=== PATIENT | male | born 1965 | race Caucasian/White ===

== ENCOUNTER 2025-01-09 05:10 | Observation (INO) | payer BC, SELFPAY ==
[2025-01-09] VITALS (14 sets, daily range): BP systolic 124–162; BP diastolic 73–96; BMI 37.8
[2025-01-09 00:29] LABS: Hematocrit 39.3 % (39.0-52.0); Hemoglobin 13.6 g/dL (13.0-18.0); Mean Corp Hgb Conc. 34.6 g/dL (33.0-37.0); Mean Corpuscular Volume 88.5 fL (80.0-94.0); Nucleated Red Blood Cells % 0 % (-); Platelet Count 278 10^3/uL (130-400); Red Cell Dist. Width 13.8 % (11.5-14.5)
[2025-01-09 00:47] LABS: ALT (SGPT) 40 U/L (0-50); AST (SGOT) 33 U/L (17-59); Albumin 4.5 g/dl (3.5-5.0); Alkaline Phosphatase 39 U/L (38-126); Blood Urea Nitrogen 33 mg/dl (9-20); Calcium 9.5 mg/dl (8.4-10.2); Carbon Dioxide 26 mmol/L (22-30); Chloride 107 mmol/L (98-107); Glucose 108 mg/dl (70-99); Potassium 4.7 mmol/L (3.5-5.1); Sodium 139 mmol/L (135-145); Total Protein 7.2 g/dl (6.3-8.2); eGFR > 60.00
[2025-01-09 00:53] LABS: Troponin I 0.016 ng/ml
--- NOTE | 2025-01-09 01:54 | ED.GENMED ---
History of Present Illness
<August Villalba MD, Resident - Last Filed: 01/09/25 05:17>
General
Chief Complaint: Chest Pain
Source: patient
Exam Limitations: none
Time Seen by Provider: 01/09/25 00:58
History of Present Illness
History of Present Illness:
Patient is a 59-year-old male who presents to the emergency department after having pain with burning and tingling sensation over the evening. He has a history of high cholesterol and is intolerant to statin medication. He was in his normal state
of health vision before bed in his 'zero gravity bed' as he always does watching television before falling asleep. Unfortunately, suddenly he started to develop with a burning sensation that was not similar to previous episodes of GERD that he has
had in the past. He stated that he 'felt weird' and struggled to describe the weird feeling aside from the left upper, tingling, and slight numbness. He had his son help measure his heart rate which was 88 at home. He did not have any shortness
of breath, dizziness, palpitations, nausea, or vomiting during this episode. He has no history of additions and his family history is noncontributory. Father recently from [facility].
Past History
<August Villalba MD, Resident - Last Filed: 01/09/25 05:17>
Past History
ED Past Medical History: None
ED Past Surgical History: None
Social History
Tobacco: Non-smoker
Alcohol: Occasional
Drug: None
Personal:
Living: with family ( lives with son)
Employment: Employed
Family History
Family History: Other ( father from [facility])
Review of Systems
<August Villalba MD, Resident - Last Filed: 01/09/25 05:17>
Review of Systems
Constitutional: Reports no symptoms
EENT: Reports no symptoms
Respiratory: Reports no symptoms
Cardiac: Reports other ( 'feels weird' left upper shoulder)
ABD/GI: Reports no symptoms
: Reports no symptoms
Musculoskeletal: Reports muscle pain ( left upper shoulder anteriorly)
Skin: Reports no symptoms
Neurological: Reports no symptoms
Endocrine: Reports no symptoms
Hematologic/Lymphatic: Reports no symptoms
Psychiatric: Reports no symptoms
Phy Exam
<August Villalba MD, Resident - Last Filed: 01/09/25 05:17>
General Physical Exam
General Presentation: well appearing and no apparent distress
General age: appears stated age
General Skin: warm and dry
General Habitus: normal and obese
General Mental: alert
General Hydration: appears well hydrated
Cardiovascular Exam
Cardiovascular Exam: regular rate/rhythm, no edema, no gallop, no JVD, no murmur, normal peripheral pulses and no carotid bruit
Pulmonary Exam
Pulmonary Exam: lungs clear, no respiratory distress, no rales, chest non tender, no crackles, no rhonchi, no stridor, no wheezing and no cough
Scores
<August Villalba MD, Resident - Last Filed: 01/09/25 05:17>
Heart Score for Chest Pain Patients
Heart Score for Chest Pain Patients: 4
Heart Score Risk: 20.3% MACE over next 6 weeks
<Magali Watson, DO - Last Filed: 01/09/25 04:17>
Heart Score for Chest Pain Patients
STEMI patient?: No
History: Slightly or Non-Suspicious
ECG: Normal
Age: >45 - <65 years
Risk Factors: 1 or 2 Risk Factors
Troponin: >/= 3 x Normal Limit
Heart Score for Chest Pain Patients: 4
Heart Score Risk: 20.3% MACE over next 6 weeks
Course
<August Villalba MD, Resident - Last Filed: 01/09/25 05:17>
Orders/Labs/Results
Orders:
Orders
01/09/25 00:01
Electrocardiogram (*1) Urgent
Reason for Study: Chest Pain
EKG- Treatment ONCE
01/09/25 00:19
Complete Blood Count/With Diff Urgent
Comprehensive Metabolic Panel Urgent
Troponin I Urgent
01/09/25 01:51
EKG- Treatment ONCE
01/09/25 02:12
Aspirin Chewable [Low Strength Aspirin] 324 mg PO NOW STA
01/09/25 03:00
Electrocardiogram (*1) Urgent
Reason for Study: Chest Pain
01/09/25 03:09
Troponin I Urgent
01/09/25 04:08
Heparin 4,000 units IV NOW STA
Nitroglycerin Ointment [Nitro-Bid] 1 inch TOPICAL NOW STA
Nursing to Place Non Medication Order As Directed
Physician Order: PTT 6 hours after initial start of Heparin infusion
Above order entered?: Yes
01/09/25 04:15
Heparin [id number] Units/250 ml 25,000 units in 250 ml IV PER PROTOCOL
Weight to be used for heparin protocol in kilograms (kg):: 120.3
Protocol:: Cardiac Tx/Acute Coronary
PTT Goal Range to be used:: PTT 73 to 111 seconds
Order type:: Initial
INITIAL Infusion Dose (UNITS/KG/hr) & then follow protocol:: 12 units/kg/hr
Infusion Dose in UNITS/hr & then follow protocol (UNITS/hr):: 1,000
INFUSION RATE in mL/hr & then follow protocol (mL/hr):: 10
PTT less than or equal to 64 seconds:: Increase rate by 200 units/hr (+ 2 mL/hr)
PTT 64.1 to 72.9 seconds:: Increase rate by 100 units/hr (+ 1 mL/hr)
PTT 73 to 111 seconds:: Target Range. No change in rate.
PTT 111.1 to 130.9 seconds:: Decrease rate by 100 units/hr (- 1 mL/hr)
PTT 131 to 199.9 seconds:: HOLD for 1 hr. Then decrease rate by 200 units/hr (- 2 mL/hr)
PTT greater than or equal to 200 seconds:: HOLD for 2 hrs & Notify Provider. Then decrease by 200 units/hr (-
2 mL/hr)
Lab follow-up:: Each change, PTT q6h until 2 consecutive are therapeutic. Then PTT
daily.
01/09/25 04:26
PTT Urgent
Comment: Obtain baseline before beginning heparin infusion if not already collected
01/09/25 04:30
Admit/Transfer Patient As Directed
Co-Sign Provider:
Level of Care: Observation services
Assign to:: Telemetry
Physician / Group: Francy
Diagnosis: NSTEMI
Reason for Telemetry: Chest Pain syndromes
Date to Stop Telemetry: 01/11/25
Time to Stop Telemetry: 11:00
PRN Pain Medication Management As Directed
May give lesser potent ordered pain med per pt: Yes
preference::
Protocol:: Medication orders for pain may be administered in a
manner that supports deferring to patient preference
when the pt is:
- Requesting an ordered lesser potent pain medication.
Least to most potent pain medications are defined
as: acetaminophen < NSAID < tramadol < opioids
(morphine, oxycodone, hydromorphone).
- Requesting a lesser dose of the same medication IF
ORDERED.
- Requesting a less intrusive route of administration
if both routes are prescribed by the provider (PO <
IV).
01/09/25 04:31
Code Status As Directed
Resuscitation Status: Full Code
01/11/25 11:00
DC Protocol for Telemetry ONCE
Abnormal Lab Results
01/09/25 01/09/25
00:19 03:09
RBC 4.44 L 10^6/uL
(4.70-6.10)
Absolute Monos (auto) 1.0 H 10^3/uL
(0.1-0.6)
Monocytes % 10.3 H %
(1.7-9.3)
Eosinophils % 7.3 H %
(0-6)
BUN 33 H mg/dl
(9-20)
Glucose 108 H mg/dl
(70-99)
Troponin I 0.161 H* D ng/ml
01/09/25 00:19
01/09/25 00:19
Vital Signs
Initial and Last Documented VS:
Initial Vital Signs
Temp Pulse Resp BP Pulse Ox
97.6 F 84 16 162/96 100
01/09/25 00:10 01/09/25 00:10 01/09/25 00:10 01/09/25 00:10 01/09/25 00:10
Last Documented Vital Signs
Temp Pulse Resp BP Pulse Ox
97.6 F 84 15 154/92 95
01/09/25 00:10 01/09/25 04:17 01/09/25 03:00 01/09/25 04:17 01/09/25 03:00
<Magali Watson, DO - Last Filed: 01/09/25 04:17>
Orders/Labs/Results
Orders:
Orders
01/09/25 00:01
Electrocardiogram (*1) Urgent
Reason for Study: Chest Pain
EKG- Treatment ONCE
01/09/25 00:19
Complete Blood Count/With Diff Urgent
Comprehensive Metabolic Panel Urgent
Troponin I Urgent
01/09/25 01:51
EKG- Treatment ONCE
01/09/25 02:12
Aspirin Chewable [Low Strength Aspirin] 324 mg PO NOW STA
01/09/25 03:00
Electrocardiogram (*1) Urgent
Reason for Study: Chest Pain
01/09/25 03:09
Troponin I Urgent
01/09/25 04:08
Heparin 4,000 units IV NOW STA
Nitroglycerin Ointment [Nitro-Bid] 1 inch TOPICAL NOW STA
Nursing to Place Non Medication Order As Directed
Physician Order: PTT 6 hours after initial start of Heparin infusion
Above order entered?: Yes
01/09/25 04:15
Heparin [id number] Units/250 ml 25,000 units in 250 ml IV PER PROTOCOL
Weight to be used for heparin protocol in kilograms (kg):: 120.3
Protocol:: Cardiac Tx/Acute Coronary
PTT Goal Range to be used:: PTT 73 to 111 seconds
Order type:: Initial
INITIAL Infusion Dose (UNITS/KG/hr) & then follow protocol:: 12 units/kg/hr
Infusion Dose in UNITS/hr & then follow protocol (UNITS/hr):: 1,000
INFUSION RATE in mL/hr & then follow protocol (mL/hr):: 10
PTT less than or equal to 64 seconds:: Increase rate by 200 units/hr (+ 2 mL/hr)
PTT 64.1 to 72.9 seconds:: Increase rate by 100 units/hr (+ 1 mL/hr)
PTT 73 to 111 seconds:: Target Range. No change in rate.
PTT 111.1 to 130.9 seconds:: Decrease rate by 100 units/hr (- 1 mL/hr)
PTT 131 to 199.9 seconds:: HOLD for 1 hr. Then decrease rate by 200 units/hr (- 2 mL/hr)
PTT greater than or equal to 200 seconds:: HOLD for 2 hrs & Notify Provider. Then decrease by 200 units/hr (-
2 mL/hr)
Lab follow-up:: Each change, PTT q6h until 2 consecutive are therapeutic. Then PTT
daily.
01/09/25 04:26
PTT Urgent
Comment: Obtain baseline before beginning heparin infusion if not already collected
01/09/25 04:30
Admit/Transfer Patient As Directed
Co-Sign Provider:
Level of Care: Observation services
Assign to:: Telemetry
Physician / Group: Francy
Diagnosis: NSTEMI
Reason for Telemetry: Chest Pain syndromes
Date to Stop Telemetry: 01/11/25
Time to Stop Telemetry: 11:00
PRN Pain Medication Management As Directed
May give lesser potent ordered pain med per pt: Yes
preference::
Protocol:: Medication orders for pain may be administered in a
manner that supports deferring to patient preference
when the pt is:
- Requesting an ordered lesser potent pain medication.
Least to most potent pain medications are defined
as: acetaminophen < NSAID < tramadol < opioids
(morphine, oxycodone, hydromorphone).
- Requesting a lesser dose of the same medication IF
ORDERED.
- Requesting a less intrusive route of administration
if both routes are prescribed by the provider (PO <
IV).
01/09/25 04:31
Code Status As Directed
Resuscitation Status: Full Code
01/11/25 11:00
DC Protocol for Telemetry ONCE
Abnormal Lab Results
01/09/25 01/09/25
00:19 03:09
RBC 4.44 L 10^6/uL
(4.70-6.10)
Absolute Monos (auto) 1.0 H 10^3/uL
(0.1-0.6)
Monocytes % 10.3 H %
(1.7-9.3)
Eosinophils % 7.3 H %
(0-6)
BUN 33 H mg/dl
(9-20)
Glucose 108 H mg/dl
(70-99)
Troponin I 0.161 H* D ng/ml
08/30/25 00:19
01/09/25 00:19
Vital Signs
Initial and Last Documented VS:
Initial Vital Signs
Temp Pulse Resp BP Pulse Ox
97.6 F 84 16 162/96 100
01/09/25 00:10 01/09/25 00:10 01/09/25 00:10 01/09/25 00:10 01/09/25 00:10
Last Documented Vital Signs
Temp Pulse Resp BP Pulse Ox
97.6 F 84 15 154/92 95
01/09/25 00:10 01/09/25 04:17 01/09/25 03:00 01/09/25 04:17 01/09/25 03:00
<August Villalba MD, Resident - Last Filed: 01/09/25 05:17>
*Pulse Oximetry
SaO2: 94
Oxygen Mode of Delivery: Room air
Patient hypoxic: no
*Critical Care Note
Total Time (30-74mins, 75-104mins- exclusive of procedures): 60
<August Villalba MD, Resident - Last Filed: 01/09/25 05:17>
Update Note
Update Note:
Problem List:
Chest pain
Chest tingling
Fingertips cold on left hand
Plan:
EKG ordered
CBC and BMP ordered
troponin ordered
supportive care
Differential Diagnoses:
stable angina
Musculoskeletal pain/ costochondritis
GERD
anxiety
Radiology: not applicable
EKG: normal EKG
Labs:
CBC and BMP unremarkable
initial troponin is within normal limits
Updates:
Patient's left-sided chest pain with burning and tingling has resolved
CBC and BMP unremarkable
initial troponin is within normal limits�repeat troponin at 3 AM
324 mg aspirin given
repeat troponin found to be 0.161
acute coronary syndrome likely based on presentation and labs
patient to be admitted
serial troponins until downtrending
heparin subcu
Nitropaste given
ED Attending Note
<August Villalba MD, Resident - Last Filed: 01/09/25 05:17>
-
Portions of this chart may have been created with voice recognition software.� Occasional wrong word or��sound alike� substitutions may have occurred due to the inherent limitations of voice recognition software.
<Magali Watson DO - Last Filed: 01/09/25 04:17>
ED Attending Note
Patient seen and examined by attending physician: Yes
I performed a history and physical exam of patient and discussed management with resident, I reviewed resident's note and agree with documented findings and plan of care.: Yes
ED Attending Note:
This is a 59-year-old gentleman with history of obesity, seasonal allergies, hyperlipidemia, GERD. He presents with left upper chest pain that radiated to his left shoulder and left arm that began 30 minutes prior to arrival while lying in bed
watching TV. He admits that his left arm was extended above his head with his hand resting behind his head when left upper chest discomfort began described as a burning and cold sensation that radiated to his left shoulder and he also noted some
tingling and cold sensation of his left hand fingers. Despite repositioning his arm to his side, left upper chest discomfort persisted. No other associated symptoms, no palpitations, no shortness of breath or diaphoresis nor nausea. No history of
similar episodes in the past. Chest discomfort lasted approximately 30 minutes and was resolving upon arrival to the ED.
Currently comfortable but is noted to frequently press and palpate his left pectoralis region.
He takes no prescription medications. Takes several vitamins, an antihistamine, as well as low-dose aspirin daily. 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
No personal nor family history of CAD nor ASCVD.
He has been successfully losing weight over the past year or 2 by maintaining a low-carb diet.
59-year-old obese gentleman appears his stated age, awake and alert, pleasant, quite chatty and in no acute distress.
Heart is regular rate and rhythm. No murmur no rub. Questionable mildly reproducible left upper chest pain with palpation. There is no tenderness to the shoulder nor pain with shoulder range of motion.
Concern for ACS, GERD, musculoskeletal chest pain. No history of thromboembolism nor risk factors for such.
EKG is unremarkable showing normal sinus rhythm, normal axis, normal intervals, no acute ST-T wave abnormalities. No old EKG to compare.
Labs thus far unremarkable. Troponin 0.016.
For potential ACS will give 324 mg chewable aspirin.
Will plan to repeat troponin and EKG at 3 AM.
04:10
Patient remains chest pain-free and comfortable.
Repeat EKG shows questionable mild early repol high laterally, no reciprocal changes.
Repeat troponin is trending up 0.161. Quite suspicious for ACS. He remains pain-free and comfortable.
Will initiate IV heparin bolus and drip. Will add Nitropaste.
Will admit to hospitalist service and will contact cardiology as well.
Discharge Plan
Departure
Patient Disposition: Admit
Date of Disposition: 01/09/25
Time of Disposition: 04:15
Admit to: Telemetry
Admit to doctor: Christie
Presentation/result/management discussed w/ accepting MD/DO: Hospitalist
Condition: Fair
Discharge Problem:
Acute coronary syndrome
Interventions
Interventions:
*Risk Screen - Suicide Last Done: 01/09/25 00:10
*General Assessment Last Done: 01/09/25 00:10
*Neglect/Abuse Screening Last Done: 01/09/25 00:10
*ED- Fall Risk Assessment Last Done: 01/09/25 01:12
*ED COVID-19 Vaccine History Last Done: 01/09/25 01:12
ED- Cardiac Assessment Last Done: 01/09/25 02:00
[2025-01-09] MEDS: LOW STRENGTH ASPIRIN 324 MG PO (02:40)
[2025-01-09 03:59] LABS: Troponin I 0.161 ng/ml
[2025-01-09] MEDS: NITRO-BID 1 INCH TOPICAL (04:16)
[2025-01-09] MEDS: HEPARIN 4000 UNITS IV (04:22)
--- NOTE | 2025-01-09 04:26 | HPS.HSE ---
Family Physician
-
Family Physician: Andre Quinteros
Chief Complaint
-
Chest pain
History of Present Illness
This is a 59-year-old with a past past medical history of hyperlipidemia and he is statin intolerant presents to the emergency department with 30 minutes of left upper sided chest pain.
Patient reports resting in his bed when he suddenly developed the left upper chest pain that seems to be radiating to his left shoulder. He denied any association with shortness of breath, diaphoresis nausea or vomiting. He denied feeling dizzy or
lightheaded. He said the symptoms lasted for about 30 minutes and he with the possibilities and decided come to the emergency department for evaluation. He denies any prior such episodes.
Patient reports he has not been having any episodes of exertional chest pain. He denies dyspnea on exertion with walking up a flight of stairs with heavy objects. Patient denies any recent trauma. Denies any cough cold or flulike symptoms. The
pain that lasts 30 minutes was not associated with any positional changes. He is currently chest pain-free without any acute intervention.
Patient reports no recent episodes of chest pain and denies any recent stress test. He reports family history of aneurysm but otherwise no significant past family history.
In the past he had had hyperlipidemia for which he had a reaction to statin with myopathy.
In the emergency department a was afebrile, blood pressure was 140/80 with a pulse of 78 and was at 97% on room air. ECG shows a normal sinus rhythm without any acute ST or T wave changes. Initial troponin was 0.012, repeat troponin was 0.16. CBC
was unremarkable. Electrolytes BUN/creatinine were normal
Medical History
Past Medical History
Past Medical History: Reports Hypercholesterolemia
Past Surgical History: Reports None
Social History
Tobacco: Non-smoker
Alcohol: Occasional
Drug: None
Personal: Single
Living: With Family
Employment: Employed
Family History
Family History: Not pertinent
Allergies / Home Medications
Allergies reflects when Allergies were last updated in [facility].
Home Medications with original date entered in [facility]
Allergy/Medication List:
Allergies
Allergy/AdvReac Type Severity Reaction Status Date / Time
[id number] Reductase Allergy Unknown Verified 01/09/25 00:15
Inhibitor
Cetirizine 10 mg tablet, 10 mg p.o. daily as needed for allergies
Review of Systems
-
History Source: Patient
Constitutional: Reports No Symptoms
EENT: Reports No Symptoms
Respiratory: Reports No Symptoms
Cardiac: Reports Chest Pain
Abdomen/GI: Reports No Symptoms
: Reports No Symptoms
Musculoskeletal: Reports No Symptoms
Skin: Reports No Symptoms
Neurological: Reports No Symptoms
Endocrine: Reports No Symptoms
Hematologic/Lymphatic: Reports No Symptoms
Psych: Reports No Symptoms
Physical Exam
Vital Signs
Vital Signs
Temp Pulse Resp BP Pulse Ox
97.6 F 78 17 139/81 97
01/09/25 00:10 01/09/25 02:00 01/09/25 02:00 01/09/25 02:00 01/09/25 02:00
Physical Exam
General: Well Developed, Well Nourished, No Apparent Distress and Obese
HEENT: NormoCephalic, Moist mucous membranes, Atraumatic and PERRLA
Respiratory: Clear
Cardiac: S1/S2 and Regular Rhythm; No Murmur or Rub
GI: Soft, Non Tender, Non Distended and Normal Bowel Sounds; No Organomegaly
Rectal: Deferred by Provider
Musculoskeletal: No Clubbing, No Cyanosis and No Edema
Skin: No Rash
Neuro: Nonfocal/grossly intact
Laboratory Results
-
01/09/25 00:19
01/09/25 00:19
Laboratory Results
Total Bilirubin 0.4 mg/dl (0.2-1.3) 01/09/25 00:19
AST 33 U/L (17-59) 01/09/25 00:19
ALT 40 U/L (0-50) 01/09/25 00:19
Alkaline Phosphatase 39 U/L (38-126) 01/09/25 00:19
Troponin I 0.161 ng/ml H* D 01/09/25 03:09
Data Reviewed
-
Medical Tests (Nuc Med, Echo, EKG etc): Image Personally Visualized and interpreted
Lab Data: Labs Reviewed by me
Old Records: Reviewed
Impression/Plan
-
IMPRESSION:
59 y.o male with chest pain with radiation to left arm and found to have elevated troponin. ECG non-ischemic. Currently chest pain free.
PLAN:
NSTEMI
- admit to telemetry/obs
- cycle enzymes
- continue heparin gtt
- asa 81 daily
- npo for now
- echo
- cardiovascular panel and a1c in am, has statin myopathy history
- cardiology consult
DVT PPX - heparin gtt
Code status - Full Code
[2025-01-09 04:46] LABS: APTT 26.7 Sec (23.4-35.0)
[2025-01-09] MEDS: HEPARIN 25000 UNITS/250 ML IV ×2 (05:11→21:09)
--- NOTE | 2025-01-09 08:26 | CON.CAR ---
Consultation
Consultation Request
Date/Time Consultation Requested: January 09, 2025
Date/Time Consultation Performed: January 09, 2025
Requesting Provider: Hospitalist service
Performing Provider: Dr. Enoch Reina
Reason for Consultation: Chest pain
Medical History
-
Chief Complaint: Chest pain
History of Present Illness:
Patient is a 59-year-old man with medical history of dyslipidemia but intolerant of statin therapy who presented to the emergency department after sudden onset of left upper chest discomfort which radiated to his left shoulder. He reports that he
was in bed watching television and then suddenly he developed his left chest discomfort that he describes as a burning sensation. He notes that this is dissimilar to his gastroesophageal reflux disease discomfort. The pain then started radiating
into his left shoulder and left upper arm. This made him very nervous so he had his son drive him to the emergency department. He describes he has never had this type of pain before.
On presentation to the emergency department he notes that his chest discomfort by that point was mostly resolved and then completely resolved shortly thereafter I believe without specific intervention with her the emergency room department record
notes 1 inch of topical nitro ointment was administered along with IV heparin infusion but I believe this was done after his chest discomfort already resolved and once his second troponin showed a rise. Overall chest pain lasted approximately 30
minutes. Blood pressure was 162/96, heart rate is 84 bpm pulse ox is noted to be 100% and he is afebrile.
- Data:
Initial EKG is normal sinus rhythm at 94 bpm. No previous for comparison
Second EKG is normal sinus rhythm at 72 bpm, normal ECG no significant change from prior
Initial troponin 0.016, second troponin 0.161
Further, patient describes that while he does not do routine aerobic activity he is generally physically active during the day. He tells me that just 2 days ago he carried to 5 gallon containers of water up 15 flights of stairs without stopping and
with no chest pain or shortness of breath.
He has had no dizziness near syncope or syncope. No palpitations.
Past medical history:
Dyslipidemia but intolerant of statin
Gastroesophageal reflux disease
Social History
Alcohol: Occasional
Drug: None
Personal:
Living: With Family
Employment: Employed
Family History
Family History: Reviewed & Not Pertinent
Allergies / Home Medications
Allergy/AdvReac Type Severity Reaction Status Date / Time
Pdamteg-YOC-GmC Reductase Allergy Unknown Verified 01/09/25 00:15
Inhibitor
�Medication �Instructions �Recorded �Confirmed �Type
aspirin 81 mg tablet,delayed 81 mg PO DAILY 01/09/25 01/09/25 History
release
cetirizine 10 mg tablet (Zyrtec) 10 mg PO DAILY 01/09/25 01/09/25 History
cholecalciferol (vit D3) 1,000 1 tab PO DAILY 01/09/25 01/09/25 History
unit-vitamin K2 (MK4) 100 mcg
tablet
coenzyme Q10 100 mg capsule 100 mg PO DAILY 01/09/25 01/09/25 History
(CoQ-10)
multivitamin 2 tab PO DAILY 01/09/25 01/09/25 History
Review of Systems
-
History Source: Patient
All other systems: Negative unless noted
Constitutional: No Symptoms
EENT: No Symptoms
Respiratory: No Symptoms
Cardiac: Chest Pain
Abdomen/GI: No Symptoms
: No Symptoms
Musculoskeletal: No Symptoms
Skin: No Symptoms
Neurological: No Symptoms
Endocrine: No Symptoms
Hematologic/Lymphatic: No Symptoms
Physical Exam
Vital Signs
Temp Pulse Resp BP Pulse Ox
97.6 F 76 16 137/84 95
01/09/25 00:10 01/09/25 07:45 01/09/25 07:45 01/09/25 07:00 01/09/25 07:45
Lab Results
01/09/25 00:19
01/09/25 00:19
Troponin I 0.161 ng/ml H* D 01/09/25 03:09
Physical Exam
General: Well Developed, Well Nourished, No Apparent Distress and Comfortable
HEENT: Normocephalic and Moist Mucous Membranes
Respiratory: Clear and Non Labored Respirations
Cardiac: S1/S2 (No S3 and no S4), Regular Rhythm and Murmur (There is a grade 1/6 apical holosystolic murmur, no rubs, PMI is normally placed)
Breast: Deferred by me
GI: Soft, Non Tender, Non Distended and Normal Bowel Sounds
Rectal: Deferred by Provider
Musculoskeletal: No Clubbing, No Cyanosis and No Edema
Skin: Warm and Dry
Neuro: Awake, Alert, Oriented and AO x 3
Psych: Calm
Impression / Plan
-
Impression:
Chest discomfort possible unstable angina/acute coronary syndrome with rising troponin but normal ECG.
Dyslipidemia by history and also intolerant to statin due to myalgias
Blood pressure elevated on presentation but has been trending towards normal
Recommendations:
With the increase in troponin as well as the chest discomfort this could represent unstable coronary syndrome even in the face of normal ECGs.
- Maintain heparin infusion
- Trend troponins and ECG
- Will start low-dose beta-dean, Toprol-XL 25 mg daily for potential antianginal effect and also to help with his blood pressure
If no further chest pain and no further rise in troponin
- Suggest further outpatient ischemic evaluation while maintaining beta-dean and aspirin
If recurrent chest discomfort or rising troponin
- We will consider further inpatient ischemic evaluation options.
Will check fasting lipid profile in the morning
There is a history of statin intolerance but we could consider pks9 inhibitor
Hypertension, likely essential hypertension
Blood pressure elevated on presentation and has trended towards normal but not at goal of less than 120 over less than 80
- Will initiate Toprol-XL for both possible unstable coronary syndrome as well as blood pressure control but blood pressure will need to be further assessed
Discussed all of this with the patient. Answered all of his questions. He agrees with our evaluation and management plan.
Total time spent today was 75 minutes in preparing to see the patient, seeing the patient and coordination of care. This included review of recent laboratory evaluations, cardiac testing, hospital records, as well as personally interviewing and
examining the patient, which included discussion of their tests, review/ordering medications, and communicating with other healthcare professionals and also treatment planning as well as counseling.
Data Reviewed
-
EKG: Tracing Personally Visualized and interpreted and Discussed with Patient
Labs: Labs Reviewed by me and Discussed with Patient
[2025-01-09 09:45] LABS: Troponin I 0.150 ng/ml
[2025-01-09] MEDS: TOPROL XL 25 MG PO (09:57)
--- NOTE | 2025-01-09 10:16 | PTCARENOTE ---
Pt was received from ED at 0830. Pt ambulated tot he room with supervision. Heparin gtt infusing at 1400 units/hr. Pt is AAOx3, VSS. Denies chest pain. Resting in bed comfortably.
--- NOTE | 2025-01-09 11:10 | W.PN.HOSP.TC ---
Today's Communication/Plan
-
Assessment / Plan
Assessment / Plan
General: No Apparent Distress, Comfortable and Conversant
HEENT: NormoCephalic, Moist mucous membranes, Atraumatic
Respiratory: Clear and Non Labored Respirations
Cardiac: S1/S2 and Regular Rhythm; No Rub or Gallop
GI: Soft, Non Tender, Non Distended and Normal Bowel Sounds
Musculoskeletal: No Edema, no deformity
Skin: Warm and dry
: NO Diez
Neuro: Awake, Alert, Nonfocal/grossly intact
Psych: Calm and Intact Judgment/Insight
Mr. Pappas is a 59-year-old male with a medical history of dyslipidemia (statin intolerant) who presented with vague left upper chest discomfort that radiated to his left arm. He described it as an aching and burning sensation. His EKGs have been
unremarkable. His initial troponin was 0.012 but second troponin yemi to 0.16. He was given full-strength aspirin and started on IV heparin drip and admitted for further evaluation and management.
NSTEMI:
- Continue IV heparin drip
- Troponins appear to have plateaued
- Currently chest pain-free
- Cardiology following, started on low-dose beta-dean with metoprolol succinate 25 mg daily
- Will continue daily low-dose aspirin
- Check lipid profile, reports statin intolerance but could consider PKS9 inhibitor
- Check hemoglobin A1c
- Continue telemetry monitoring
Hypertension:
- Suspect longstanding, not on antihypertensive medications at home
- Started on metoprolol succinate 25 mg daily in setting of NSTEMI, will monitor blood pressure response
- Can add additional agents as needed
DVT prophylaxis: Heparin drip
CODE STATUS: Full code
Total time spent on today's encounter was 53 minutes
Anticipated Discharge: 24 - 48 hours
Subjective/Interval History
-
Date of Service: January 09, 2025
Patient was seen and examined at bedside this morning. Chest discomfort has resolved. Remains on IV heparin drip. Trending troponins.
Objective Data
-
Labs:
Laboratory Results
01/09/25 01/09/25 01/09/25
00:19 04:26 11:09
WBC 9.6
Hgb 13.6
Hct 39.3
Plt Count 278
APTT 26.7 Pending
Sodium 139
Potassium 4.7
Chloride 107
Carbon Dioxide 26
BUN 33 H
Creatinine 1.0
Glucose 108 H
Calcium 9.5
Total Bilirubin 0.4
AST 33
ALT 40
Alkaline Phosphatase 39
Vital Signs:
Vital Signs
Temp Pulse Resp BP Pulse Ox
97.9 F 84 16 147/84 100
01/09/25 08:32 01/09/25 08:32 01/09/25 08:32 01/09/25 08:32 01/09/25 08:32
Review of Systems
-
History Source: Patient
All other systems: Reviewed and negative
Physical Exam
-
General: No Apparent Distress
[2025-01-09 11:52] LABS: APTT 52.4 Sec (23.4-35.0)
[2025-01-09] MEDS: TYLENOL 650 MG PO ×3 (12:33→23:24)
[2025-01-09 18:45] LABS: APTT 66.0 Sec (23.4-35.0)
[2025-01-09] MEDS: BENADRYL 25 MG PO (23:01)
[2025-01-10 01:35] LABS: APTT 70.4 Sec (23.4-35.0)
[2025-01-10 03:02] VITALS: BP 140/83
[2025-01-10 06:00] VITALS: BMI 37.0
[2025-01-10 07:37] LABS: Hematocrit 41.0 % (39.0-52.0); Hemoglobin 14.2 g/dL (13.0-18.0); Mean Corp Hgb Conc. 34.6 g/dL (33.0-37.0); Mean Corpuscular Volume 89.1 fL (80.0-94.0); Platelet Count 271 10^3/uL (130-400); Red Cell Dist. Width 14.4 % (11.5-14.5)
[2025-01-10 07:43] LABS: APTT 88.6 Sec (23.4-35.0)
[2025-01-10 07:58] LABS: Troponin I 0.101 ng/ml
[2025-01-10 08:17] LABS: Glycohemoglobin (HgbA1c) 5.5 % (4.0-5.6)
[2025-01-10] MEDS: TOPROL XL 25 MG PO (08:27)
--- NOTE | 2025-01-10 08:30 | W.PN.CARDCBS ---
Today's Communication / Plan
-
Discharge on optimize medical regimen
Return to the ER if additional symptoms
Outpatient catheterization JUDE
Impression / Plan
-
Impression:
Chest discomfort possible unstable angina/acute coronary syndrome with rising troponin but normal ECG.
Dyslipidemia by history and also intolerant to statin due to myalgias
Blood pressure elevated on presentation but has been trending towards normal
Recommendations:
He presents with a story that is consistent with an acute coronary syndrome.
My preference would be to keep him in the hospital on heparin, optimize medical regimen, and proceed with catheterization on Saturday.
However, related to concerns about his son he feels very pressed to leave. We discussed this in detail. I told him that we discharged the risk of serious and potentially lethal outcomes would be low in the short-term.
After consideration, and in light of the fact that he has few other options with his son, he has elected to be discharged.
We will attempt to optimize his status.
Recommended cardiac medications at discharge:
Aspirin 81 mg a day
Pitavastatin 2 mg daily
Metoprolol ER 25 mg twice daily
Losartan 50 mg at bedtime
Clopidogrel 75 mg daily
Ultimately he would probably best be treated with Repatha.
Patient instructed to return to the emergency department if he has additional symptoms.
My office will contact him on Saturday to set up cardiac catheterization JUDE. I have asked him not to eat breakfast Saturday until we have spoken with him.
Progress Note - Blemish Remover
Subjective
Date of Service: January 10, 2025:
Is 59-year-old man admitted with chest discomfort, history of statin intolerance
PMH: Reflux, statin intolerant hypercholesterolemia, probable hypertension
Currently he feels well. However, he is under stress as he 23-year-old son lives with him who is on the spectrum and not doing well at home with his dad in the hospital. He feels pressed to leave.
Current medications: IV heparin, aspirin 81 mg a day, metoprolol ER 25 mg daily, lidocaine patch
140/88, pulse 79, respiratory rate 19 afebrile, weight is 113.5 kg, head neck exam unremarkable, lungs are clear, cardiac exam is notable for regular rate and rhythm without obvious murmurs or gallops, abdomen is benign extremities are without
clubbing cyanosis or edema
ECG no acute changes
Hemoglobin 14.2, troponin 0.101, peaked at 0.161, hemoglobin A1c is normal, BUN and creatinine are 17 and 0.8. Triglycerides are 265, total cholesterol is 232, LDL calculates at 100 with markedly elevated related VLDL and HDL 79. Glucose is 125
Objective
Labs:
01/10/25 07:17
Labs
Hgb 14.2 g/dL (13.0-18.0) 01/10/25 07:17
Hct 41.0 % (39.0-52.0) 01/10/25 07:17
Plt Count 271 10^3/uL (130-400) 01/10/25 07:17
APTT 88.6 Sec (23.4-35.0) H 01/10/25 07:17
Sodium 139 mmol/L (135-145) 01/09/25 00:19
Potassium 4.7 mmol/L (3.5-5.1) 01/09/25 00:19
BUN 33 mg/dl (9-20) H 01/09/25 00:19
Creatinine 1.0 mg/dL (0.7-1.3) 01/09/25 00:19
Glucose 108 mg/dl (70-99) H 01/09/25 00:19
Troponins
01/09/25 01/09/25 01/09/25
00:19 03:09 08:45
Troponin I 0.016 0.161 H* D 0.150 H*
01/09/25 01/10/25
10:58 07:17
Troponin I Cancelled 0.101 H*
Vital Signs and I&O:
Vital Signs
Temp Pulse Resp BP Pulse Ox
36.6 C 79 19 140/88 98
01/10/25 03:02 01/10/25 08:27 01/10/25 03:02 01/10/25 08:27 01/10/25 03:02
Vital Signs
Temp Pulse Resp BP Pulse Ox
36.6 C 79 19 140/88 98
01/10/25 03:02 01/10/25 08:27 01/10/25 03:02 01/10/25 08:27 01/10/25 03:02
Intake & Output
01/08/25 01/09/25 01/10/25 01/11/25
07:59 07:59 07:59 07:59
Intake Total 240 / 240
Balance 240 / 240
Physical Exam
Physical Exam
See above
[2025-01-10 08:31] LABS: Blood Urea Nitrogen 17 mg/dl (9-20); Calcium 9.4 mg/dl (8.4-10.2); Carbon Dioxide 28 mmol/L (22-30); Chloride 105 mmol/L (98-107); Estimated Creatinine Clearance > 125 ml/min; Glucose 125 mg/dl (70-99); HDL Cholesterol 79 mg/dl; LDL Cholesterol, Calculated 100 mg/dl; Potassium 4.3 mmol/L (3.5-5.1); Sodium 138 mmol/L (135-145); Very Low Density Lipoprotein 53 mg/dl (0-30); eGFR > 60.00
[2025-01-10 08:36] VITALS: BP 140/88
--- NOTE | 2025-01-10 11:12 | W.DCSUMMARY ---
Discharge Summary
Discharge Data
Date of Admission: 01/09/25
Date of Discharge: 01/10/25
Total time spent discharging patient (in min): 48
-
Pending Results: No
Hospital Course
Mr. Pappas is a 59-year-old male with a medical history of dyslipidemia (statin intolerant) who presented with vague left upper chest discomfort that radiated to his left arm. He described it as an aching and burning sensation. His EKGs have been
unremarkable. His initial troponin was 0.012 but second troponin yemi to 0.16. He was given full-strength aspirin and started on IV heparin drip and admitted for further evaluation and management.
His chest pain resolved although later returned intermittently. His troponins peaked at 0.16 and trended down on subsequent labs. His EKGs showed no acute changes. Initially plan was to keep him inpatient for coronary catheterization on Saturday.
However, patient has a child at home with special needs who would not be able to care for himself until Saturday. He spoke with cardiology team and agreed to follow-up as an outpatient for coronary angiography this week on Saturday or Saturday. He
has been loaded with Plavix prior to discharge. He has been advised about the risks associated with leaving the hospital at this point in his workup, although they are fairly low in the short-term. He has also been advised to go to the nearest
emergency department or call 911 if his presenting symptoms return or if he develops other concerning symptoms. He has been started on losartan and metoprolol for blood pressure and cardioprotection. He will be continued on DAPT with aspirin and
Plavix. He will be started on pitavastatin as well for cholesterol management however ultimately he should probably be treated with Repatha.
General: No Apparent Distress, Comfortable and Conversant
HEENT: NormoCephalic, Moist mucous membranes, Atraumatic
Respiratory: Clear and Non Labored Respirations
Cardiac: S1/S2 and Regular Rhythm; No Rub or Gallop
GI: Soft, Non Tender, Non Distended and Normal Bowel Sounds
Musculoskeletal: No Edema, no deformity
Skin: Warm and dry
: NO Diez
Neuro: Awake, Alert, Nonfocal/grossly intact
Psych: Calm and Intact Judgment/Insight
Discharge Plan
-
Patient Disposition: Home (Routine Discharge)
Discharge Diagnosis/Procedures: NSTEMI
Activity Restrictions/Additional Instructions:
Mr. Pappas is a 59-year-old male with a medical history of dyslipidemia (statin intolerant) who presented with vague left upper chest discomfort that radiated to his left arm. He described it as an aching and burning sensation. His EKGs have been
unremarkable. His initial troponin was 0.012 but second troponin yemi to 0.16. He was given full-strength aspirin and started on IV heparin drip and admitted for further evaluation and management.
His chest pain resolved although later returned intermittently. His troponins peaked at 0.16 and trended down on subsequent labs. His EKGs showed no acute changes. Initially plan was to keep him inpatient for coronary catheterization on Saturday.
However, patient has a child at home with special needs who would not be able to care for himself until Saturday. He spoke with cardiology team and agreed to follow-up as an outpatient for coronary angiography this week on Saturday or Saturday. He
has been loaded with Plavix prior to discharge. He has been advised about the risks associated with leaving the hospital at this point in his workup, although they are fairly low in the short-term. He has also been advised to go to the nearest
emergency department or call 911 if his presenting symptoms return or if he develops other concerning symptoms. He has been started on losartan and metoprolol for blood pressure and cardioprotection. He will be continued on DAPT with aspirin and
Plavix. He will be started on pitavastatin as well for cholesterol management however ultimately he should probably be treated with Repatha.
Referrals:
Nadya Reina MD [Active, Cardiology]
Andre Quinteros DO [Family Provider, [facility]]
Prescriptions:
New
losartan 50 mg Tablet
50 mg PO HS 30 Days Qty: 30 0RF
metoprolol succinate 25 mg Tablet Extended Release 24 Hr
25 mg PO BID 30 Days Qty: 60 0RF
clopidogrel [Plavix] 75 mg tablet
75 mg PO DAILY Qty: 30 0RF
pitavastatin calcium 2 mg tablet
2 mg PO QPM 30 Days Qty: 30 0RF
Continued
multivitamin Tablet
2 tab PO DAILY
cetirizine [Zyrtec] 10 mg Tablet
10 mg PO DAILY
aspirin 81 mg Tablet,Delayed Release (Dr/Ec)
81 mg PO DAILY
vitamin D3-vitamin K2 (MK4) 1,000-100 unit-mcg Tablet
1 tab PO DAILY
coenzyme Q10 [CoQ-10] 100 mg Capsule
100 mg PO DAILY
Discharge Orders:
Discharge Patient (As Directed); Ordered 01/10/25
Ordered By: Chris Sutherland
Discharge Date and Time
Print Language: DANISH
[2025-01-10] MEDS: PLAVIX 600 MG PO (11:27)
[2025-01-10 11:32] VITALS: BP 153/85
== END 2025-01-10 12:03 | disposition home or self-care (01) ==
LOC: 4 EAST ACU 05:10
PROVIDERS: ADMITTING PHYSICIAN Internal Medicine; ATTENDING PHYSICIAN Internal Medicine; CONSULT PHYSICIAN Internal Medicine Cardiovascular Disease; EMERGENCY PHYSICIAN Emergency Medicine; FAMILY PHYSICIAN Family Medicine
DX: I21.4 Non-ST elevation (NSTEMI) myocardial infarction (principal); I10 Essential (primary) hypertension; E78.00 Pure hypercholesterolemia, unspecified; K21.9 Gastro-esophageal reflux disease without esophagitis; Z79.02 Long term (current) use of antithrombotics/antiplatelets; Z79.82 Long term (current) use of aspirin; Z79.899 Other long term (current) drug therapy
CPT/HCPCS: 80048; 80053; 80061; 83036; 84484; 85025; 85027; 85730; 93005; 96365; 96366; 99291; G0378

== ENCOUNTER 2025-01-12 10:33 | Day surgery (SDC) | payer BC, SELFPAY ==
[2025-01-12] VITALS (32 sets, daily range): BP systolic 75–131; BP diastolic 35–88; BMI 37.6
[2025-01-12] MEDS: NSS 336 ML IV (11:29)
[2025-01-12 13:45] LABS: ACT-LR - POC 274 Seconds (116-155)
[2025-01-12 13:54] LABS: ACT-LR - POC 290 Seconds (116-155)
[2025-01-12 14:06] LABS: ACT-LR - POC 361 Seconds (116-155)
[2025-01-12 14:24] LABS: ACT-LR - POC 318 Seconds (116-155)
--- NOTE | 2025-01-12 14:51 | ITS.CL.CATH ---
Signal Repairer - Catheterization
Cardiac Catheterization
Procedure Report:
LEFT HEART CATH AND CORONARY INTERVENTION
Date of Procedure: January 12, 2025
Referring: Dr. Nikita Mansfield
PROCEDURES:
1. Left heart catheterization with coronary and single-plane left ventriculography
2. Successful stenting of the mid LAD with placement of a 3.5 x 30 mm [place] stent that was postdilated with a 3.75 x 15 mm noncompliant balloon in the mid and distal portion of the stent and with a 4.0 x 6 mm noncompliant balloon proximally to 23 evelio
3. Intravascular ultrasound guiding post dilation
INDICATION: This is a 59-year-old gentleman with a past medical history notable for hyperlipidemia and reported statin intolerance. He presented to [facility] on 01/09/2025 with complaints of upper sternal chest discomfort beginning at
rest. He became chest pain-free in the emergency department. His troponin was mildly elevated at 0.161 ng/mL. 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 He remained chest pain-free and requested discharge in order to be with his son. He
was loaded with clopidogrel and started on Toprol XL and losartan. He now returns for coronary angiography.
ACCESS: Right radial artery, 6 Thai sheath
HEMODYNAMICS (mmHg):
AO (s/d, m) : 133/80, 104
LV (s/d) : 133/5
LVEDP : 17
CORONARY FINDINGS
Dominance: Right
LEFT MAIN: [ ]
LEFT ANTERIOR DESCENDING: The LAD is a large-caliber vessel that arises normally from the left main and runs in the anterior interventricular groove. There is a hazy 99% stenosis in the mid LAD beyond a moderate caliber first diagonal branch. The
remainder of the LAD has only minor luminal irregularities.
CIRCUMFLEX: The circumflex is medium caliber nondominant vessel that has minor irregularities over its course and supplies a single sizable obtuse marginal branch
RIGHT CORONARY: The right coronary artery is a large-caliber dominant vessel with mild luminal irregularities over its course
VENTRICULOGRAPHY: Left ventriculography is performed in PIERCE projection. The digital single-plane left ventricular ejection fraction is estimated at 55-60%
ANGIOPLASTY PROCEDURE DETAIL: Upon review of the diagnostic angiogram the decision was made to proceed with percutaneous revascularization of the subtotally occluded mid LAD. Intravenous heparin was administered. The patient arrived to the
catheterization laboratory on background therapy of clopidogrel and aspirin.
The origin of the left main was cannulated with a 6 Thai XB 3.5 guiding catheter and a long BMW guidewire across the high-grade stenosis in the mid LAD and was advanced into the distal vessel. A second BMW guidewire was positioned in the first
diagonal branch. Balloon predilation of the mid LAD was performed with a 2.25 x 12 mm [place] balloon that was inflated to nominal pressures. A 3.5 x 30 mm [place] stent was advanced over the guidewire in position with angiographic and fluoroscopic
guidance. The stent was implanted at 14 evelio. Intravascular ultrasound was then performed. The stent appeared well-approximated to the arterial wall distally with a luminal diameter estimated around 3.75 mm. The stent was somewhat undersized
proximally with a reference diameter measuring between 4.3 up to 4.5 mm.
The stented segment was postdilated with a 3.75 mm noncompliant balloon at the distal edge of the stent to 16 evelio and in the midportion of the stent with the 3.75 mm noncompliant balloon which was inflated to 18 evelio. The proximal and midportion of
the stent were postdilated with the 4.0 x 6 mm noncompliant balloon that was inflated to 16 evelio just beyond the origin of the diagonal branch into 23 evelio in the very proximal portion of the stent.
SEDATION: 75 minutes of procedural sedation was utilized. An independent medical bill processor was present to assist with and help manage the patient's level of consciousness and physiologic status
RADIATION SUMMARY: Fluoro Time (min): 17 point, Dose (mGy): 1140, DAP (Gy.cm2) : 72.2
CONCLUSIONS
1. High-grade mid LAD stenosis successfully stented with a 3.5 x 30 mm [place] stent. Intravascular ultrasound guided post dilation strategy using a 3.75 x 15 mm noncompliant balloon in the mid and distal portion of the stent and with a 4.0 x 6 mm
noncompliant balloon proximally to the midportion of the stent
RECOMMENDATIONS
1. Continue dual antiplatelet therapy
2. Clearly will need higher dose of statin therapy to reduce LDL cholesterol closer to 55 mg/dL
3. Needs to monitor home blood pressures for goal of less than 130/80
Copy to: Dr. Nikita Mansfield
[2025-01-12] MEDS: TYLENOL 650 MG PO ×2 (15:41→19:46)
--- NOTE | 2025-01-12 16:15 | W.PN.UPDATE ---
Update Note
Progress Note Update
59 yo WM s/p PCI LAD (Same day). He denies cp, sob, gail diet, mild headache improved with Tylenol, R rad site with TR band no HT, EKG SR, no ST changes. He will be on DAPT ASA/Plavix. We discussed statin therapy as he is only on Livalo and
tolerated this in the past and will work on his diet and wt loss. He is not interested in injectables at this time. Cardiac rehab c/s. He will f/u DCA in 4 weeks. He is for d/c home after 7p if rad site stable.
--- NOTE | 2025-01-12 18:14 | W.PN.UPDATE ---
Update Note
Progress Note Update
Checked on patient just at time nursing had noted he was diaphoretic and hypotensive. BP in mid 70's to low 80's. He was bradycardic. He received 500 ml of IV fluids and blood pressures responded. He denies any chest discomfort. He had ECG
during the episode and appears largely unchanged. Will probably monitor overnight. Patient considering
--- NOTE | 2025-01-12 18:19 | PTCARENOTE ---
Pt HR dropped to low 30's and SBP 70's. Pt stated feeling sweaty. Pt layed flat and 500ml IV fluid bolus given. Dr Mello present at bedside. STAT EKG and ECHO done. Pt will be admitted to IVU for observation. HR back up to 66. SBP 117. Pt voided
550ml yolanda urine. EKG and ECHO appear to be normal.
[2025-01-12] MEDS: NSS 500 IV (19:18)
--- NOTE | 2025-01-12 19:23 | PTCARENOTE ---
~[id number]: Patient brought to room from CCL. VSS at this time. Patient oriented to room and call morin system. Last 3cc removed from TR band. All needs met at this time, call morin within reach. Handoff report given to nightshift RN.
[2025-01-12 21:11] LABS: Hematocrit 40.4 % (39.0-52.0); Hemoglobin 13.8 g/dL (13.0-18.0)
--- NOTE | 2025-01-13 00:14 | PTCARENOTE ---
Assumed care of patient at change of shift. TR band removed at 19:20 w/out any complications. Dry dressing applied, + radial pulse. Pt AAOx4 and educated pt about activity restrictions. Verbalized understanding. Tele monitor shows NSR, HR in the
60-70's at rest. Pt denies any chest discomfort, but does c/o headache pain on the back of his head. PRN Tylenol 650 mg administered at 19:46. Pt requested an ice pack for the back of his head, this RN provided it. CAD packet given and education
provided. Call morin within reach.
--- NOTE | 2025-01-13 00:25 | PTCARENOTE ---
Patient refused to take HS Lipitor, despite education. Pt reports his Mother will bring in his home medication (Pitavastatin) on 01/13.
[2025-01-13 04:05] VITALS: BP 111/71
[2025-01-13 04:39] LABS: Hematocrit 40.0 % (39.0-52.0); Hemoglobin 13.9 g/dL (13.0-18.0); Mean Corp Hgb Conc. 34.8 g/dL (33.0-37.0); Mean Corpuscular Volume 87.7 fL (80.0-94.0); Platelet Count 254 10^3/uL (130-400); Red Cell Dist. Width 14.0 % (11.5-14.5)
[2025-01-13 05:05] LABS: Albumin 4.2 g/dl (3.5-5.0); Blood Urea Nitrogen 18 mg/dl (9-20); Calcium 9.7 mg/dl (8.4-10.2); Carbon Dioxide 25 mmol/L (22-30); Chloride 107 mmol/L (98-107); Estimated Creatinine Clearance > 125 ml/min; Glucose 100 mg/dl (70-99); Potassium 4.2 mmol/L (3.5-5.1); Sodium 137 mmol/L (135-145); eGFR > 60.00
[2025-01-13 06:54] VITALS: BP 109/71
[2025-01-13] MEDS: PLAVIX 75 MG PO (08:02)
[2025-01-13] MEDS: ASPIR LOW (ENTERIC COATED) 81 MG PO (08:02)
[2025-01-13] MEDS: THERAGRAN 2 TABLET PO (08:02)
--- NOTE | 2025-01-13 10:33 | W.PN.CARDCBS ---
Today's Communication / Plan
-
Hold metoprolol until cardiology followup
cardiac rehab
home today
Impression / Plan
-
PCP: Clem Quinteros,
CDY: Nikita Mansfield MD
59 y/o, PMH HLD w/statin intolerance, obesity with approx 100lb weight loss over the last year. Was seen at ER 01/09 for new onset chest discomfort at rest. Troponin was mildly elevated with peak 0.161. He is and cares for and son with
autism. He remained chest pain-free and requested discharge in order to be with his son. He was loaded with clopidogrel and started on Toprol XL and losartan. Presented for elective cath, s/p mid LAD PCI w/ZIYAD. Post cath, had vagal episode with
SBP 70s, HR 40s, diaphoresis and LH. Resolved with IVF. Bedside echo reportedly normal and no EKG changes. Admitted overnight for monitoring.
[facility] 01/12- Hazy 99% mid LAD stenosis, s/p IVUS guided angioplasty and ZIYAD x1
IMPRESSION:
CAD w/ACS
s/p mid LAD PCI
HLD, statin intolerant
obesity
PLAN:
Tele- NSR, no VT/arrhythmia
Stable overnight with no further vagal episodes
right radial cath site stable
DAPT w/asa, plavix
Will hold metoprolol until followup at [facility] in 4 weeks
tolerates pitavastatin for lipids, however, still markedly elevated- consider PCSK9 inhibitor
Cardiac rehab consulted
continue with weight loss
followup as scheduled and with Dr. Mansfield thereafter
Progress Note - [employer]
Subjective
Date of Service: January 13, 2025
Denies cp/palps/dyspnea
no further vagal events overnight
radial cath site without pain
oob ambulating
Objective
Labs:
01/13/25 04:23
01/13/25 04:23
Labs
Hgb 13.9 g/dL (13.0-18.0) 01/13/25 04:23
Hct 40.0 % (39.0-52.0) 01/13/25 04:23
Plt Count 254 10^3/uL (130-400) 01/13/25 04:23
Sodium 137 mmol/L (135-145) 01/13/25 04:23
Potassium 4.2 mmol/L (3.5-5.1) 01/13/25 04:23
BUN 18 mg/dl (9-20) 01/13/25 04:23
Creatinine 0.7 mg/dL (0.7-1.3) 01/13/25 04:23
Glucose 100 mg/dl (70-99) H 01/13/25 04:23
Vital Signs and I&O:
Vital Signs
Temp Pulse Resp BP Pulse Ox
98.1 F 74 20 109/71 98
01/13/25 06:54 01/13/25 08:00 01/13/25 06:54 01/13/25 06:54 01/13/25 06:54
Vital Signs
Temp Pulse Resp BP Pulse Ox
98.1 F 74 20 109/71 98
01/13/25 06:54 01/13/25 08:00 01/13/25 06:54 01/13/25 06:54 01/13/25 06:54
Intake & Output
01/11/25 01/12/25 01/13/25 01/14/25
06:59 06:59 06:59 06:59
Intake Total 1230 / 1230
Balance 1230 / 1230
Physical Exam
Physical Exam
AAOx3, MAEE 5
RRR S1 S2 no murmurs
CTA bilat, non labored
soft abd, + bs
right radial site SHAHLA, no ht/bleeding, non tender
bilat extremities w/palpable distal pulses, no edema
--- NOTE | 2025-01-13 10:53 | W.DS.TRANS ---
DC Summary - [employer]
-
Discharge Instructions:
Discharge Diagnosis/Procedures Angioplasty and stent to Left Anterior
Descending artery
Diet Low Cholesterol
Driving Restrictions No driving for 24 hours
Other Services Cardiac Rehab
Instructions:
Stand-Alone Forms: DC Instructions- Cath/EP Lab
Changes to Home Medications: Yes
Discharge Medications:
DC Medications w/original date entered in [employer]
aspirin 81 mg tablet,delayed release 81 mg PO DAILY Blood Clot Prevention/Tx 01/09/25
cetirizine 10 mg tablet (Zyrtec) 10 mg PO DAILY Allergies 01/09/25
cholecalciferol (vit D3) 1,000 unit-vitamin K2 (MK4) 100 mcg tablet 1 tab PO DAILY Supplement 01/09/25
coenzyme Q10 100 mg capsule (CoQ-10) 100 mg PO DAILY Supplement 01/09/25
multivitamin 2 tab PO DAILY Supplement 01/09/25
clopidogrel 75 mg tablet (Plavix) 75 mg PO DAILY #30 tabs 01/10/25
losartan 50 mg tablet 50 mg PO HS 30 days #30 tabs 01/10/25
metoprolol succinate 25 mg tablet,extended release 24 hr 25 mg PO BID 30 days #60 tabs 01/10/25
pitavastatin calcium 2 mg tablet 2 mg PO HS 01/12/25
Home Medication Changes
HOLD: metoprolol
Pending Results: No
[2025-01-13 10:59] VITALS: BP 139/84
--- NOTE | 2025-01-13 11:05 | PTCARENOTE ---
Patient discharged to home. Discharge teaching provided and patient verbalized understanding. IV and telemetry removed. Patient escorted to main lobby
== END 2025-01-13 10:15 | disposition home or self-care (01) ==
LOC: CATH 10:33
PROVIDERS: ATTENDING PHYSICIAN Internal Medicine Interventional Cardiology; FAMILY PHYSICIAN Family Medicine; OTHER PHYSICIAN Internal Medicine Cardiovascular Disease
DX: I24.9 Acute ischemic heart disease, unspecified (principal); I25.811 Atherosclerosis of native coronary artery of transplanted heart without angina pectoris; E78.5 Hyperlipidemia, unspecified; Z79.02 Long term (current) use of antithrombotics/antiplatelets; Z79.82 Long term (current) use of aspirin; R07.89 Other chest pain; E66.9 Obesity, unspecified; Z79.899 Other long term (current) drug therapy
CPT/HCPCS: 99152; 99153; 80069; 85014; 85018; 85027; 85347; 92978; 93005; 93308; 93321; 93325; 93458; C1725; C1753; C1769; C1874; C1887; C1894; C9600; G0378